=== PATIENT | male | born 1970 | race Caucasian/White ===

== ENCOUNTER 2019-08-18 10:48 | Emergency (ER) | payer OTHER, SELFPAY ==
[2019-08-18 10:51] VITALS: BP 130/82; PULSE 55; RESP 16; TEMP 36.7; O2SAT 100; BMI 28.0
--- NOTE | 2019-08-18 10:56 | DI.RAD.S_ITS ---
PROCEDURE: XR HAND LT MIN 3V INDICATIONS: shot with nail gun TECHNIQUE: 3 views of the hand(s) acquired. COMPARISON: None. FINDINGS: Bones: No fractures or dislocations. Carpal bones are normally aligned. No suspicious bony lesions. Soft tissues: No suspicious soft tissue calcifications. No radiopaque foreign body is seen. IMPRESSION: No gross acute left hand fracture or dislocation. No radiopaque foreign bodies Dictated by: Nolan Arita M.D. on 08/18/2019 at 11:21 Approved by: Nolan Arita M.D. on 08/18/2019 at 11:23
--- NOTE | 2019-08-18 10:59 | PC.NURSE ---
pain at site of nail puncture. Pt reports he removed the nail when it happened and it was embeded about 1/2 inch into his hand. Now unable to make a fist, swelling, redness, and pain spreading to other fingers.
[2019-08-18 13:04] VITALS: BP 132/82; PULSE 55; RESP 14; O2SAT 100
[2019-08-18] MEDS: TET,DIPH,PERTUSS(ACELL),VAC/PF 0.5 ML SYRINGE IM (13:07)
--- NOTE | 2019-08-18 13:24 | ED.WOUNDLAC ---
HPI - Wound/Laceration <Briseyda Lua PA-C - Last Filed: 08/18/19 22:14> General Chief Complaint: Wound/Laceration Stated Complaint: left hand nail gun injury Time Seen by Provider: 08/18/19 10:59 Source: patient Mode of arrival: Ambulatory Limitations: no limitations History of Present Illness HPI narrative: This is a 49-year-old gentleman who presents to the emergency department after sustaining a nail gun injury to his left palm yesterday. He says that he had a nail gun at just slightly the wrong angle and it went in through his hand laterally in his palm near the base of his fingers, and he pulled it out immediately. He had minimal bleeding at the time, and had normal range of motion and strength, but he says that this morning when he woke up his hand was feeling stiff and tight and much more painful. He denies changes in color to his skin, loss of sensation or change in sensation, numbness or tingling, fever, chills, shortness of breat or any other symptoms and states that this is an isolated injury. Onset (ago): day(s) (1) Extremity Location: Left: hand Place: home Patient tetanus UTD: No Context: accidental Associated symptoms: pain and other (stiffness, reduced ROM) Treatments prior to arrival: NSAIDS Related Data Previous Rx's Medication Instructions Recorded cephalexin [Keflex] 500 mg PO QID #20 cap MDD 2000mg 08/18/19 Allergies Allergy/AdvReac Type Severity Reaction Status Date / Time No Known Drug Allergies Allergy Verified 08/18/19 11:09 Review of Systems <Briseyda Lua PA-C - Last Filed: 08/18/19 22:14> Review of Systems Narrative: GENERAL: Denies chills, fatigue, malaise, fever, sweats. HEENT: Denies sinus pain, ear pain, sore throat, difficulty swallowing, dizziness. RESPIRATORY: Denies dyspnea, cough, wheezing, hemoptysis, sputum. CARDIOVASCULAR: Denies chest pain, palpitations, orthopnea, edema, GASTROINTESTINAL: Denies nausea, vomiting, abdominal pain, diarrhea, constipation, melena. : Denies dysuria, frequency, incontinence, hematuria, urinary retention. MUSCULOSKELETAL: denies weakness, joint pain, or bony pain SKIN: Positive for a puncture wound sustained from a large galvanized nail in his left hand, Denies rash, skin lesions, or other NEUROLOGIC: Denies weakness, headache, numbness, change in speech, confusion, seizures, incoordination. PSYCHIATRIC: No concerning psychosocial issues. 12 point review of systems is negative except for those stated above Patient History <Briseyda Lua PA-C - Last Filed: 08/18/19 22:14> Social History Smoking Status: Never smoker Smoking Status: Never smoker alcohol intake frequency: a few times a month Substance Use Type: does not use Exam <Briseyda Lua PA-C - Last Filed: 08/18/19 22:14> Narrative Exam Narrative: GENERAL: 49 year old patient appears stated age. Well-nourished, well-developed patient, in mild distress. HEAD: Atraumatic. Normocephalic. EYES: Pupils equal round and reactive. Extraocular motions intact. No scleral icterus. No injection or drainage. ENT: Nose without bleeding, purulent drainage. Throat without erythema, tonsillar hypertrophy or exudate. Airway patent. NECK: Trachea midline. Non tender CARDIOVASCULAR: Regular rate and rhythm without murmurs, gallops, or rubs. RESPIRATORY: Clear to auscultation. Breath sounds equal bilaterally. No wheezes, rales, or rhonchi. EXTREMITIES: No edema or joint tenderness. NEURO: AOx3. SKIN: There is a closed puncture wound with mild erythema on the left anterior hand just overlying the MCP joint of the 2nd digit with associated pain and tenderness proceeding medially towards the MCP joint of the 4th digit. There is tenderness in the anterior distal palm over the 2nd 3rd and 4th MCP joints. The area of injury on the left palm is just slightly warm to the touch in comparison to the same area on the right palm. There is No rash or erythema of other visible areas Initial Vital Signs Initial Vital Signs: Vital Signs Temperature 98.1 F 08/18/19 10:51 Pulse Rate 55 L 08/18/19 10:51 Respiratory Rate 16 08/18/19 10:51 Blood Pressure 130/82 08/18/19 10:51 Pulse Oximetry 100 08/18/19 10:51 <Larry Bustillos MD - Last Filed: 08/22/19 21:28> Initial Vital Signs Initial Vital Signs: Vital Signs Temperature 98.1 F 08/18/19 10:51 Pulse Rate 55 L 08/18/19 10:51 Respiratory Rate 16 08/18/19 10:51 Blood Pressure 130/82 08/18/19 10:51 Pulse Oximetry 100 08/18/19 10:51 Course <Briseyda Lua PA-C - Last Filed: 08/18/19 22:14> Orders Ordered: Discontinued Medications Acetaminophen (Tylenol) 650 mg PO NOW ONE Stop: 08/18/19 13:58 Last Admin: 08/18/19 14:05 Dose: 650 mg Documented by: HALEY Diphtheria/Tetanus/Acell Pertussis (Adacel) 0.5 ml IM .ONCE ONE Stop: 08/18/19 11:05 Last Admin: 08/18/19 13:07 Dose: 0.5 ml Documented by: HALEY Ibuprofen (Advil) 400 mg PO NOW ONE Stop: 08/18/19 13:58 Last Admin: 08/18/19 14:05 Dose: 400 mg Documented by: HALEY Vital Signs Vital signs: Vital Signs - 8 hr 08/18/19 10:51 08/18/19 13:04 Temperature 98.1 F Pulse Rate 55 L 55 L Respiratory Rate 16 14 Blood Pressure 130/82 Blood Pressure [Right Arm] 132/82 Pulse Oximetry 100 100 <Larry Bustillos MD - Last Filed: 08/22/19 21:28> Orders Ordered: Discontinued Medications Acetaminophen (Tylenol) 650 mg PO NOW ONE Stop: 08/18/19 13:58 Last Admin: 08/18/19 14:05 Dose: 650 mg Documented by: HALEY Diphtheria/Tetanus/Acell Pertussis (Adacel) 0.5 ml IM .ONCE ONE Stop: 08/18/19 11:05 Last Admin: 08/18/19 13:07 Dose: 0.5 ml Documented by: HALEY Ibuprofen (Advil) 400 mg PO NOW ONE Stop: 08/18/19 13:58 Last Admin: 08/18/19 14:05 Dose: 400 mg Documented by: HALEY Vital Signs Vital signs: Vital Signs - 8 hr 08/18/19 10:51 08/18/19 13:04 Temperature 98.1 F Pulse Rate 55 L 55 L Respiratory Rate 16 14 Blood Pressure 130/82 Blood Pressure [Right Arm] 132/82 Pulse Oximetry 100 100 MDM - Wound/Laceration <Briseyda Lua PA-C - Last Filed: 08/18/19 22:14> Differential Diagnosis Differential diagnosis: Likely other (puncture wound/nail gun injury) Medical Records Attestation: I reviewed the patient's medical records. Imaging Data Extremity x-ray #1: Attestation: I personally reviewed and interpreted this imaging study as follows: Radiologist's Impression: [address] [address] XRay Report Signed Patient: Martinez Robledo EMR#: [id number] : [id number]:[id number] Age/Sex: 49 / MDate of Service: 08/18/19 Loc: ED Accession Number: [id number] Procedure: XR hand LT min 3V Ordering Provider: Larry Bustillos MD PROCEDURE: XR HAND LT MIN 3V INDICATIONS: shot with nail gun TECHNIQUE: 3 views of the hand(s) acquired. COMPARISON: None. FINDINGS: Bones: No fractures or dislocations. Carpal bones are normally aligned. No suspicious bony lesions. Soft tissues: No suspicious soft tissue calcifications. No radiopaque foreign body is seen. IMPRESSION: No gross acute left hand fracture or dislocation. No radiopaque foreign bodies Dictated by: Nolan Arita M.D. on 08/18/2019 at 11:21 Approved by: Nolan Arita M.D. on 08/18/2019 at 11:23 MDM Narrative Medical decision making narrative: This is a generally well-appearing 49-year-old male who presents complaining of a nail gun injury to his left palm with sustained yesterday, he reports it was not sustained at work. This morning he experienced increasing pain and reduced range of motion with making a fist and moving his affected fingers so he presented to the emergency department. X-ray does not show clear evidence of bone or tendon involvement, he is neuro-vascularly intact, however cannot rule out tendon sheath involvement, and risk of infection/possibly anaerobic bacteria is relatively high given the 2-3 cm depth of the intrusion of the galvanized nail. Patient received a tetanus shot. Surgical scrubbing, was referred to see Orthopedics, and was prescribed antibiotics as prophylaxis against infection. He was provided with emergency return precautions and all questions were answered. Discharge Plan Departure Patient Disposition: Home Clinical Impression: Hand pain, left Puncture wound of left hand without foreign body Qualifiers: Encounter type: initial encounter Qualified Code(s): S61.432A - Puncture wound without foreign body of left hand, initial encounter Discharge Date/Time: 08/18/19 14:13 Instructions: DI for Puncture Wound Activity Restrictions/Additional Instructions: Thank you for letting us back part of your care in the emergency department today. There is no evidence of an emergent or life threatening illness at this time, but follow up with your doctor in 1-2 days is recommended nonetheless to continue to rule out serious underlying causes of your symptoms. Please call the office for an appointment. Please return to the Emergency Department for any worsening or persistent symptoms. Please take medications as directed. I have referred you to see Dr. Hammonds of [facility], however you can see any available orthopedic provider in his office, I recommend that you call them and work with them to get yourself scheduled for an appointment in the next 2-3 days if at all possible. You should take the Keflex antibiotic as prescribed 4 times a day for 5 days as a prophylaxis against infection in her hand. You can eat yogurt or take probiotics if you feel you are having stomach upset. Please monitor your hand for changes in symptoms including increasingly reduced range of motion or significantly increasing pain, swelling, or redness. Please also watch for signs of systemic infection including fevers, chills, nausea, vomiting or fatigue. If you have any of these symptoms or any other symptoms of concern to you please seek medical care or return to the emergency department immediately. You can take Tylenol and ibuprofen alternating for pain up to the maximum daily amount recommended for [id number] medications. I also recommend that you do not do excessive use with your injured hand for the next 5-7 days, is okay to use it, however you do want to let it rest and heal, so you should not be doing a lot of movement with it or lifting. 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 However I do recommend you take care of your hand, and he may want to consider using an Uriel wrap on it to remind you not to overuse it. Prescriptions: New cephalexin [Keflex] 500 mg capsule 500 mg PO QID MDD 2000mg Qty: 20 RF: 0 Referrals: Akosua Hammonds MD [Physician] - (nail gun puncture anterior Left distal palm)
[2019-08-18] MEDS: ACETAMINOPHEN 325 MG TABLET 650 MG PO (14:05)
[2019-08-18] MEDS: IBUPROFEN 400 MG TABLET PO (14:05)
== END 2019-08-18 14:13 | disposition home or self-care (01) ==
PROVIDERS: Emergency Provider Student in an Organized Health Care Education/Training Program; Family Provider Internal Medicine
DX: S61.432A Puncture wound without foreign body of left hand, initial encounter (principal); W29.4XXA Contact with nail gun, initial encounter; Z23 Encounter for immunization
CPT/HCPCS: 73130; 90471; 99283; 90715

== ENCOUNTER → 2020-03-19 07:39 | Outpatient (CLI) | payer OTHER, SELFPAY ==
[2020-03-19 08:25] LABS: Add Manual Diff / Slide Review NO; Basophils Absolute Auto 100 /uL (0-100); Basophils Percent Auto 1.2 % (0-2); Eosinophils Absolute Auto 300 /uL (0-450); Eosinophils Percent Auto 5.8 % (2-4); Hematocrit 45.7 % (41-53); Hemoglobin 15.7 g/dL (13.5-17.5); Lymphocytes Absolute Auto 1500 /uL (1100-4500); Lymphocytes Percent Auto 31.2 % (25-40); Mean Corpuscular HGB Conc 34.3 % (30-36); Mean Corpuscular Hemoglobin 32.6 PG (26-34); Mean Corpuscular Volume 95.1 fL (80-100); Monocytes Absolute Auto 500 /uL (0-900); Monocytes Percent Auto 10.6 % (3-14); Neutrophils Absolute Auto 2500 /uL (1500-7000); Neutrophils Percent Auto 51.2 % (50-75); Platelet Count 277 X10^3/uL (150-400); Red Blood Cell Count 4.81 X10^6/uL (4.5-5.9); White Blood Cell Count 4.9 X10^3/uL (4.5-11.0)
[2020-03-19 09:20] LABS: Alanine Aminotransferase 44 IU/L (<50); Albumin 4.2 g/dL (3.5-5.0); Albumin Globulin Ratio 1.4 (1.0-2.8); Alkaline Phosphatase 59 U/L (38-126); Aspartate Aminotransferase 33 IU/L (17-59); BUN Creatinine Ratio 17.9 (6-22); Bilirubin Total 0.5 mg/dL (0.2-1.3); Blood Urea Nitrogen 17 mg/dL (9-20); Calcium 9.6 mg/dL (8.4-10.2); Carbon Dioxide 30 mmol/L (22-32); Chloride 104 mmol/L (98-107); Cholesterol 247 mg/dL (140-199); Estimated Glomerular Filt Rate > 60.0 mL/min (>60); Globulin 2.9 g/dL (1.7-4.1); Glucose 92 mg/dL (70-100); HDL Cholesterol 53 mg/dL (40-60); HEMOLYSIS < 15 (0-50); LDL Cholesterol Calculated 173 mg/dL (<100); Potassium 4.7 mmol/L (3.4-5.1); Sodium 138 mmol/L (137-145); Total Protein 7.1 g/dL (6.3-8.2); Triglycerides 105 mg/dL (35-150)
[2020-03-19 09:52] LABS: Prostate Specific Antigen Scrn 0.615 ng/mL (0.1-4.0)
== END ==
PROVIDERS: Family Provider Internal Medicine; PCP Internal Medicine; Referring Provider Internal Medicine; Visit Provider Internal Medicine
DX: Z00.00 Encounter for general adult medical examination without abnormal findings (principal); E78.2 Mixed hyperlipidemia; Z12.5 Encounter for screening for malignant neoplasm of prostate
CPT/HCPCS: 36415; 80053; 80061; 85025; G0103

== ENCOUNTER → 2020-07-02 07:03 | Outpatient (CLI) | payer OTHER, SELFPAY ==
[2020-07-02 07:54] LABS: Cholesterol 193 mg/dL (140-199); HDL Cholesterol 44 mg/dL (40-60); LDL Cholesterol Calculated 135 mg/dL (<100); Triglycerides 68 mg/dL (35-150)
== END ==
PROVIDERS: Family Provider Internal Medicine; PCP Internal Medicine; Referring Provider Internal Medicine; Visit Provider Internal Medicine
DX: E78.2 Mixed hyperlipidemia (principal); E78.00 Pure hypercholesterolemia, unspecified
CPT/HCPCS: 36415; 80061